=== PATIENT | male | born 1960 | race Caucasian/White ===

== ENCOUNTER → 2017-12-20 09:43 | Outpatient (CLI) | payer BC, SELFPAY ==
[2017-12-20 11:21] LABS: AST(SGOT) 18 U/L (15-37); Alanine Aminotransfer ALT/SGPT 26 U/L (16-61); Albumin, Serum 3.7 g/dL (3.2-5.0); Alkaline Phosphatase 102 U/L (45-117); Anion Gap 7 (5-15); BUN 17 mg/dL (7-18); BUN/Creat Ratio 21.7 RATIO (10-20); Calcium,Total 8.7 mg/dL (8.5-10.1); Chloride 106 mmol/L (98-107); Cholesterol 145 mg/dL (200); Creatinine, Serum 0.78 mg/dL (0.70-1.30); EST Glomerular Filtration Rate 109 mL/min (>60); Est Glom Filt Rate - Afr Amer 132 mL/min (>60); Globulin 3.5 g/dL (2.2-4.2); Glucose 91 mg/dL (74-106); High Density Lipoprotein 67 mg/dL; Potassium 3.9 mmol/L (3.5-5.1); Protein, Total 7.2 g/dL (6.4-8.2); Sodium Level 140 mmol/L (136-145); Thyroid Stim Hormone (TSH) 0.98 uIU/mL (0.358-3.74); Triglycerides 51 mg/dL; Very Low Density Lipoprotein 10 mg/dL (5-40)
== END ==
PROVIDERS: Family Provider Internal Medicine; PCP Internal Medicine; Referring Provider Internal Medicine Cardiovascular Disease; Visit Provider Internal Medicine Cardiovascular Disease
DX: I10 Essential (primary) hypertension (principal); E78.5 Hyperlipidemia, unspecified
CPT/HCPCS: 36415; 80048; 80061; 80076; 84443

== ENCOUNTER → 2018-12-12 09:46 | Outpatient (CLI) | payer BC, SELFPAY ==
[2018-12-12 07:46] VITALS: BMI 27.2
[2018-12-12 11:18] LABS: AST(SGOT) 19 U/L (15-37); Alanine Aminotransfer ALT/SGPT 26 U/L (16-61); Albumin, Serum 3.9 g/dL (3.2-5.0); Alkaline Phosphatase 94 U/L (45-117); Anion Gap 6 (5-15); BUN 18 mg/dL (7-18); BUN/Creat Ratio 22.6 RATIO (10-20); Bilirubin, Direct 0.17 mg/dL (0.00-0.30); Calcium,Total 9.2 mg/dL (8.5-10.1); Chloride 105 mmol/L (98-107); Cholesterol 156 mg/dL (200); EST Glomerular Filtration Rate 107 mL/min (>60); Est Glom Filt Rate - Afr Amer 129 mL/min (>60); Globulin 3.3 g/dL (2.2-4.2); Glucose 94 mg/dL (74-106); High Density Lipoprotein 74 mg/dL; Potassium 3.9 mmol/L (3.5-5.1); Protein, Total 7.2 g/dL (6.4-8.2); Sodium Level 140 mmol/L (136-145); Triglycerides 63 mg/dL; Very Low Density Lipoprotein 13 mg/dL (5-40)
== END ==
PROVIDERS: Family Provider Internal Medicine; PCP Internal Medicine; Referring Provider Internal Medicine Cardiovascular Disease; Visit Provider Internal Medicine Cardiovascular Disease
DX: I10 Essential (primary) hypertension (principal); E78.5 Hyperlipidemia, unspecified; Q21.1 Atrial septal defect; Z86.73 Personal history of transient ischemic attack (TIA), and cerebral infarction without residual deficits
CPT/HCPCS: 36415; 80048; 80061; 80076

== ENCOUNTER → 2019-12-18 09:58 | Outpatient (CLI) | payer BC, SELFPAY ==
[2019-12-18 07:32] VITALS: BMI 26.7
[2019-12-18 10:50] LABS: AST(SGOT) 16 U/L (15-37); Alanine Aminotransfer ALT/SGPT 29 U/L (16-61); Albumin, Serum 3.9 g/dL (3.2-5.0); Alkaline Phosphatase 90 U/L (45-117); Bilirubin, Direct 0.17 mg/dL (0.00-0.30); Cholesterol 163 mg/dL (200); Globulin 3.2 g/dL (2.2-4.2); High Density Lipoprotein 71 mg/dL; Protein, Total 7.1 g/dL (6.4-8.2); Triglycerides 64 mg/dL; Very Low Density Lipoprotein 13 mg/dL (5-40)
== END ==
PROVIDERS: PCP Internal Medicine; Referring Provider Internal Medicine Cardiovascular Disease; Visit Provider Internal Medicine Cardiovascular Disease
DX: E78.5 Hyperlipidemia, unspecified (principal); I10 Essential (primary) hypertension
CPT/HCPCS: 36415; 80061; 80076

== ENCOUNTER → 2020-01-11 12:35 | Outpatient (CLI) | payer BC, SELFPAY ==
[2019-12-18 07:32] VITALS: BMI 26.7
--- NOTE | 2020-01-11 12:36 | ECHOD_ITS ---
Reason For Study: PFO/ASD Procedure This was a 2D Doppler, Color Flow transthoracic echocardiogram. Exam performed in department. Left Ventricle Normal LV size. Sigmoid septum. Left ventricular systolic function is normal. The estimated ejection fraction is 65 %. No regional wall motion abnormalities noted. Right Ventricle Normal RV size. Normal systolic function. Atria Normal left atrium. Normal right atrium. Mitral Valve Bileaflet diffuse mitral valve thickening. Tricuspid Valve Normal tricuspid valve. Aortic Valve Normal aortic valve. Trisinus/trileaflet aortic valve. Pulmonic Valve Normal pulmonic valve. Great Vessels Normal aortic root. The pulmonary artery is normal size. Normal inferior vena cava. Pericardium/Pleural No pericardial effusion. MMode/2D Measurements & Calculations LVIDd: 4.7 cm IVSd: 1.1 cm Ao root diam: 3.3 cm LVIDs: 2.6 cm LVPWd: 0.99 cm RVDd: 3.7 cm FS: 44.5 % LAV(MOD-bp): 31.4 ml LVAd ap4: 32.5 cm2 SV(MOD-sp4): 60.4 ml LAV(MOD-bp) Indexed: 16.6 ml/m2 EDV(MOD-sp4): 101.6 ml LAV(MOD-sp2): 37.5 ml EDV(sp4-el): 104.8 ml LAV(MOD-sp4): 26.7 ml LVAs ap4: 18.4 cm2 ESV(MOD-sp4): 41.1 ml ESV(sp4-el): 40.7 ml EF(MOD-sp4): 59.5 % EF(sp4-el): 61.2 % SV(sp4-el): 64.1 ml LA A4 area: 12.3 cm2 LA dimension(2D): 3.9 cm RA A4 area: 12.5 cm2 Doppler Measurements & Calculations MV E max damien: 52.8 cm/sec Lat Peak E' Damien: 5.5 cm/sec Med Peak E' Damien: 5.6 cm/sec MV A max damien: 68.3 cm/sec E/E' lat: 9.6 E/E' med: 9.5 MV E/A: 0.77 Ao V2 max: 125.5 cm/sec LV V1 max: 103.0 cm/sec PA V2 max: 86.1 cm/sec Ao max P.3 mmHg LV V1 max P.2 mmHg TR max damien: 213.3 cm/sec TR max P.2 mmHg Interpretation Summary Normal LV size. Left ventricular systolic function is normal. The estimated ejection fraction is 65 %. Sigmoid septum. Ordering Physician: Flaquito Garcia Referring Physician: Greta Claudio M.D. Performed By: Concha Stanley RDCS
== END ==
PROVIDERS: PCP Internal Medicine; Referring Provider Internal Medicine Cardiovascular Disease; Visit Provider Internal Medicine Cardiovascular Disease
DX: Q21.1 Atrial septal defect (principal); I10 Essential (primary) hypertension
CPT/HCPCS: 93306

== ENCOUNTER → 2020-12-17 11:13 | Outpatient (CLI) | payer BC, SELFPAY ==
[2020-12-17 12:23] LABS: AST(SGOT) 18 U/L (15-37); Alanine Aminotransfer ALT/SGPT 25 U/L (16-61); Albumin, Serum 3.7 g/dL (3.2-5.0); Alkaline Phosphatase 81 U/L (45-117); Bilirubin, Direct 0.17 mg/dL (0.00-0.30); Cholesterol 143 mg/dL (200); Globulin 3.3 g/dL (2.2-4.2); High Density Lipoprotein 69 mg/dL; Triglycerides 37 mg/dL; Very Low Density Lipoprotein 7 mg/dL (5-40)
== END ==
PROVIDERS: PCP Internal Medicine; Referring Provider Nurse Practitioner Family; Visit Provider Nurse Practitioner Family
DX: E78.5 Hyperlipidemia, unspecified (principal)
CPT/HCPCS: 36415; 80061; 80076

== ENCOUNTER 2021-04-09 05:59 | Outpatient (CLI) | payer BC, SELFPAY ==
--- NOTE | 2021-04-09 18:54 | STRESSREP ---
Stress Test Report Exercise myocardial perfusion stress test. 60-year-old male with a history of chest pain. Stress protocol: Resting EKG demonstrates normal sinus rhythm with a rate of 77 bpm normal intervals are noted resting blood pressure is 138/88 mmHg. The patient exercised according to regular Jimmy protocol for total duration of 6 minutes. Patient completed stage II of the Jimmy protocol the maximum heart rate attained was 139 bpm which was 85% of max impact at heart rate the maximum workload was 7 metabolic equivalents. At rest there were no ST or T wave changes noted suggest ischemia and at peak exercise upsloping ST changes only were noted with did not meet the criteria for ischemia. No clinical angina was noted. Myocardial perfusion protocol. 11.8 mCi of technetium 99m sestamibi was injected at rest. The patient exercised according to regular Jimmy protocol. At peak exercise 31.9 mCi of technetium 99m sestamibi was injected stress images were obtained stress and rest images were reconstructed and compared in the short axis vertical long and horizontal long axis. Gated images were also obtained per Perfusion SPECT analysis: Review of the stress images demonstrate normal uptake of tracer noted in all areas of the myocardium. The resting images similarly demonstrate normal uptake of tracer noted in all areas of the myocardium. No areas of reversibility are noted suggest ischemia. Gated SPECT analysis: The gated ejection fraction is noted to be 70%. Conclusion: Normal exercise myocardial perfusion stress test at a moderate workload. Preserved ejection fraction.
== END 2021-04-09 23:59 | disposition home or self-care (01) ==
PROVIDERS: PCP Internal Medicine; Referring Provider Nurse Practitioner Family; Visit Provider Nurse Practitioner Family
DX: R07.9 Chest pain, unspecified (principal); I10 Essential (primary) hypertension; E78.5 Hyperlipidemia, unspecified; Q21.1 Atrial septal defect; Z86.73 Personal history of transient ischemic attack (TIA), and cerebral infarction without residual deficits
CPT/HCPCS: 78452; 93017; A9500; A4216

== ENCOUNTER 2021-12-08 12:01 | Emergency (ER) | payer BC, SELFPAY ==
[2021-12-08 12:03] VITALS: BP 136/98; PULSE 80; RESP 18; TEMP 36.5; O2SAT 98; BMI 25.8
--- NOTE | 2021-12-08 12:17 | CT_ITS ---
STUDY: CTA HEAD AND NECK WITH CONTRAST REASON FOR EXAM: Male, 61 years old. Dizziness. History of hypertension. RADIATION DOSAGE (If Supplied By Facility): CTDIvol = ( 27.99 ) mGy, DLP = ( 1551.04 ) mGycm TECHNIQUE: CT angiography was performed with a multi-detector CT scanner. Data acquisition was obtained from the skull base through the vertex following intravenous administration of IV 100mL Isovue-370. MIP images were reconstructed from the axial data set. Post-processing of the angiographic images was performed, with multiplanar reformation and 3D reconstruction. Individualized dose optimization techniques were used for this CT. COMPARISON: No relevant priors. FINDINGS: Normal bilateral petrous carotid arteries. There is calcified plaque formation of the right cavernous carotid artery, without a cross-sectional luminal stenosis. There is calcified plaque formation of the left cavernous carotid artery, without a cross-sectional luminal stenosis. Normal right A1 segments of the anterior cerebral artery. Normal left A1 segments of the anterior cerebral artery. Normal intact anterior communicating artery (ACOM). Normal bilateral A2 segments of the anterior cerebral arteries. Normal right M1 and M2 segments of the middle cerebral arteries, with a normal M1 bifurcation. Normal left M1 and M2 segments of the middle cerebral arteries, with a normal M1 bifurcation. Normal right posterior communicating artery (PCOM). Normal left posterior communicating artery (PCOM). Normal bilateral vertebral arteries. Normal basilar artery with a normal basilar bifurcation. The visualized bilateral superior cerebellar (SCA) arteries are normal. Normal bilateral P1, P2 and visualized P3 segments of the posterior cerebral arteries. There is no demonstrated aneurysm of the [place] of [place]. Atherosclerotic calcific plaques of the vertebral arteries and cavernous portions of the internal carotid arteries bilaterally. There is evidence of encephalomalacia in the posterior left occipital lobe. This is unchanged from prior examination dated 11/14/2014. AORTIC ARCH: Normal visualized aortic arch. Normal origins of the brachiocephalic, left common carotid, and left subclavian arteries. RIGHT CAROTID ARTERIES: Normal right common carotid artery (CCA). Normal right common carotid bulb. Normal origin of the right internal carotid (ICA) artery without a hemodynamically significant stenosis. Normal visualized cervical portion of the right internal carotid artery. Normal origin of the right external carotid artery (ECA). LEFT CAROTID ARTERIES: Normal left common carotid artery (CCA). Normal left common carotid bulb. Normal origin of the left internal carotid (ICA) artery without a hemodynamically significant stenosis. Normal visualized cervical portion of the left internal carotid artery. Normal origin of the left external carotid artery (ECA). VERTEBRAL ARTERIES: There is enhancement within the bilateral vertebral arteries with a small right vertebral artery, and a dominant left vertebral artery. Calcific plaque formation in the distal portion of the left vertebral artery. CT/CTA Head AND Neck W/ Contrast IMPRESSION: Normal CTA Head and neck with contrast. Electronically Signed: Jonnathan San MD at 13:50 EDT ,
--- NOTE | 2021-12-08 12:19 | EDS_ITS ---
HPI History of Present Illness Chief Complaint: Dizziness Informant: patient Onset/Context/Timing Onset: Today Narrative Narrative: Patient present secondary to dizziness. He was at work this morning when he states he felt lightheaded whenever he would bend over to get something. He called his primary care physician who recommended he go to the now urgent care center. The provider there apparently was concerned about possible stroke as patient has a history of stroke and sent him to the emergency room to get a CAT scan. Patient denies chest pain or palpitations. He did not feel as if he was going to pass out. When patient was asked about his prior stroke symptoms he states he just had watering from the right eye. Reportedly a lesion the size of a quarter was found on his MRI. [facility] Medical History (Updated 12/08/21 @ 14:[address] Britney Aviles MD) Essential (primary) hypertension History of CVA (cerebrovascular accident) (2012) HLD (hyperlipidemia) Patent foramen ovale Home Medications aspirin 325 mg tablet 325 mg PO DAILY@0800 11/16/14 [History Last Taken 03/18/16] atorvastatin 10 mg tablet 10 mg PO QHS #90 tabs 06/22/21 [Rx Last Taken Unknown] lisinopril 20 mg tablet 20 mg PO DAILY #90 tabs 06/22/21 [Rx Last Taken Unknown] Allergy/AdvReac Type Severity Reaction Status Date / Time No Known Allergies Allergy Verified 12/08/21 12:04 Family History Father CAD (coronary artery disease) Myocardial infarction Social History Smoking Status: Never smoker Smokeless tobacco user: chewing tobacco alcohol intake: never substance use type: does not use caffeine: Yes (mountain dew ) Type: carbonated beverages Number of servings: 6 ROS ROS ED Constitutional Constitutional ED: Denies chills or fever(s) Eyes Eyes: Denies change in vision or discharge from eye(s) ENT ENT ED: Denies discharge from eye(s), rhinorrhea or sore throat Cardiovascular Cardiovascular: Denies chest pain or palpitations Respiratory/Chest Respiratory/Chest: Denies cough or dyspnea Gastrointestinal Gastrointestinal: Denies abdominal pain, nausea or vomiting Genitourinary Genitourinary ED: Denies difficulty urinating or dysuria Musculoskeletal Musculoskeletal: Denies back pain or extremity pain Integumentary Denies Abrasions or rash Neurologic Neurologic: Denies headache(s) or weakness Psychiatric Psychiatric: Denies anxiety or depression Allergic/Immunologic Allergic/Immunologic ED: Denies lip swelling or urticaria EXAM Physical Exam Const Vital Signs: 12/08/21 12:03 12/08/21 12:44 Temperature 97.7 F L Temperature Source Temporal Pulse Rate 80 Respiratory Rate 18 Respiratory Effort Normal Non-Labored Respiratory Pattern Normal Blood Pressure 136/98 H Blood Pressure Mean 110 Pulse Ox 98 Oxygen Delivery Method Room Air Positive well nourished and well developed General Appearance ED: well developed HEENT Reports normocephalic and head/scalp atraumatic Eyes PERRL and EOMs intact bilaterally Neck supple Chest Wall inspection of chest normal and palpation of chest normal Resp normal respiratory effort and clear to auscultation bilaterally Cardio regular rate and regular rhythm GI normal to inspection, nondistended, normoactive bowel sounds Palpation: soft Extremity normal to inspection Neuro oriented x3 and no sensory deficits noted Sensorium / Orientation: alert Motor Exam: strength 5/5 throughout Psych mental status grossly normal Skin no rashes or lesions noted MDM MDM MDM Narrative Medical decision making narrative: Patient was given a liter IV fluids. Lab work obtained along with CTA of the head and neck. EKG ordered. Lab Data Attestation: I reviewed the patient's lab results. Labs: Laboratory Results - last 24 hr 12/08/21 12/08/21 12:36 12:36 WBC 7.6 RBC 4.68 Hgb 15.1 Hct 41.8 MCV 89.3 MCH 32.3 H MCHC 36.1 H RDW Std Deviation 38.0 RDW Coeff of [place] 11.7 Plt Count 220 MPV 9.6 Immature Gran % (Auto) 0.400 Neut % (Auto) 79.6 H Lymph % (Auto) 13.[address] [place] % (Auto) 5.5 Eos % (Auto) 0.9 Baso % (Auto) 0.4 Absolute Neuts (auto) 6.1 Absolute Lymphs (auto) 1.01 Nucleated RBC % 0 Sodium 140 Potassium 3.9 Chloride 106 Carbon Dioxide 29.0 Anion Gap 5 BUN 22 H Creatinine 0.71 Estim Creat Clear Calc 104.74 Est GFR (MDRD) Af Amer 146 Est GFR (MDRD) Non-Af 121 BUN/Creatinine Ratio 31.1 H Glucose 113 H Calcium 9.2 EKG Initial EKG: Attestation: I personally reviewed and interpreted this EKG as follows: Interpretation: Sinus Rhythm (Sinus at 78 with no acute ischemia.) Treatment and Re-Evaluation Narrative: As advised by nursing staff that patient ambulated to the restroom and back without difficulty. EKG is unremarkable. Lab work is normal and CTA of the head and neck reveal no acute abnormalities. Test results are discussed with the patient. He will continue to push fluids. He is given a work note for today. He can return tomorrow. He states at this time he feels fine but he did not feel well this morning. Discharge Plan Triage Chief Complaint: Dizziness ED Provider: Britney Aviles Dx/Rx/DC Orders Clinical Impression: Dizziness Instructions: ED Dizziness, Uncertain Cause Prescriptions: No Action aspirin 325 MG tablet 325 mg PO DAILY@0800 lisinopril 20 mg tablet 20 mg PO DAILY Qty: 90 3RF atorvastatin 10 mg tablet 10 mg PO QHS Qty: 90 3RF Stand Alone Forms: ED Work / School Excuse Primary Care Provider: Greta Claudio Referrals: Greta Claudio DO [Primary Care Provider] - 1 Week if not improving Disposition Disposition: Home, Self Care
[2021-12-08] MEDS: 0.9% Normal Saline 1,000 ML 1000 ML IV (12:36)
[2021-12-08 12:47] LABS: Absolute Lymphocyte Count 1.01 X10^3/uL (0.83-4.51); Absolute Neutrophil Count 6.1 X10^3/uL (2.0-7.7); Basophil# 0.03 X10^3/uL; Basophil% 0.4 % (0-1); Eosinophil# 0.07 X10^3/uL; Eosinophils% 0.9 % (0-5); Hematocrit 41.8 % (40-54); Hemoglobin 15.1 g/dL (13.0-16.5); Lymphocyte # 1.01 X10^3/ul (0.83-4.51); Lymphocyte % 13.2 % (19-41); Mean Corp Hgb Conc 36.1 g/dL (32-36); Mean Corpuscular Hgb 32.3 pg (27.0-32.0); Mean Corpuscular Volume 89.3 fL (80-94); Mean Platelet Vol. 9.6 fl (6.2-12.0); Monocyte# 0.42 X10^3/uL; Monocyte% 5.5 % (0-10); NRBC Flagged by Analyzer 0 % (0-5); Neutrophil # 6.08 X10^3/uL (2.7-7.7); Neutrophil % 79.6 % (47-70); Platelet Count 220 K/mm3 (150-450); RBC Distribution Width CV 11.7 % (11.6-14.6); Red Blood Count 4.68 M/mm3 (4.6-6.2); White Blood Count 7.6 K/mm3 (4.4-11.0)
--- NOTE | 2021-12-08 12:49 | NURSING ---
NO OLD EKGS
[2021-12-08 12:59] LABS: Anion Gap 5 (5-15); BUN 22 mg/dL (7-18); BUN/Creat Ratio 31.1 RATIO (10-20); Calcium,Total 9.2 mg/dL (8.5-10.1); Chloride 106 mmol/L (98-107); Creatinine, Serum 0.71 mg/dL (0.70-1.30); EST Glomerular Filtration Rate 121 mL/min (>60); Est Glom Filt Rate - Afr Amer 146 mL/min (>60); Estimated Creatinine Clearance 104.74 ml/min; Glucose 113 mg/dL (74-106); Potassium 3.9 mmol/L (3.5-5.1); Sodium Level 140 mmol/L (136-145)
[2021-12-08 14:04] VITALS: BP 142/87; PULSE 70; RESP 16; O2SAT 99
== END 2021-12-08 14:11 | disposition home or self-care (01) ==
PROVIDERS: Emergency Provider Emergency Medicine; PCP Internal Medicine; Visit Provider Emergency Medicine
DX: R42 Dizziness and giddiness (principal); I10 Essential (primary) hypertension; E78.5 Hyperlipidemia, unspecified; F17.220 Nicotine dependence, chewing tobacco, uncomplicated; Z79.82 Long term (current) use of aspirin; Z79.899 Other long term (current) drug therapy; Z86.73 Personal history of transient ischemic attack (TIA), and cerebral infarction without residual deficits; Z82.49 Family history of ischemic heart disease and other diseases of the circulatory system
CPT/HCPCS: 70496; 70498; 80048; 85025; 93005; 96360; 96361; 99284; J7030; Q9967; A4216

== ENCOUNTER → 2021-12-19 | Outpatient (CLI) | payer BC, SELFPAY ==
[2021-12-19 07:42] LABS: Absolute Lymphocyte Count 1.86 X10^3/uL (0.83-4.51); Absolute Neutrophil Count 3.2 X10^3/uL (2.0-7.7); Basophil# 0.04 X10^3/uL; Basophil% 0.6 % (0-1); Eosinophil# 0.51 X10^3/uL; Eosinophils% 8.1 % (0-5); Hematocrit 42.7 % (40-54); Hemoglobin 14.9 g/dL (13.0-16.5); Lymphocyte # 1.86 X10^3/ul (0.83-4.51); Lymphocyte % 29.5 % (19-41); Mean Corp Hgb Conc 34.9 g/dL (32-36); Mean Corpuscular Hgb 31.8 pg (27.0-32.0); Mean Corpuscular Volume 91.2 fL (80-94); Mean Platelet Vol. 9.3 fl (6.2-12.0); Monocyte# 0.61 X10^3/uL; Monocyte% 9.7 % (0-10); NRBC Flagged by Analyzer 0 % (0-5); Neutrophil # 3.24 X10^3/uL (2.7-7.7); Neutrophil % 51.5 % (47-70); Platelet Count 225 K/mm3 (150-450); RBC Distribution Width CV 11.8 % (11.6-14.6); RBC Distribution Width SD 39.2 fl (35.1-43.9); Red Blood Count 4.68 M/mm3 (4.6-6.2); White Blood Count 6.3 K/mm3 (4.4-11.0)
[2021-12-19 08:31] LABS: ALB/GLOB Ratio 1.2 RATIO (0.9-2.4); AST(SGOT) 27 U/L (15-37); Alanine Aminotransfer ALT/SGPT 31 U/L (16-61); Albumin, Serum 3.6 g/dL (3.2-5.0); Alkaline Phosphatase 82 U/L (45-117); Anion Gap 6 (5-15); BUN 29 mg/dL (7-18); BUN/Creat Ratio 37.5 RATIO (10-20); Calcium,Total 8.7 mg/dL (8.5-10.1); Chloride 107 mmol/L (98-107); Cholesterol 146 mg/dL (200); Creatinine, Serum 0.77 mg/dL (0.70-1.30); EST Glomerular Filtration Rate 109 mL/min (>60); Est Glom Filt Rate - Afr Amer 132 mL/min (>60); Globulin 2.9 g/dL (2.2-4.2); Glucose 108 mg/dL (74-106); High Density Lipoprotein 75 mg/dL; PSA,Total - Annual Screen 2.62 ng/mL (0.00-4.00); Potassium 4.2 mmol/L (3.5-5.1); Protein, Total 6.5 g/dL (6.4-8.2); Sodium Level 140 mmol/L (136-145); Thyroid Stim Hormone (TSH) 0.86 uIU/mL (0.358-3.74); Triglycerides 55 mg/dL; Very Low Density Lipoprotein 11 mg/dL (5-40)
== END | disposition home or self-care (01) ==
PROVIDERS: PCP Internal Medicine; Visit Provider Internal Medicine
DX: E78.5 Hyperlipidemia, unspecified (principal); Z12.5 Encounter for screening for malignant neoplasm of prostate
CPT/HCPCS: 36415; 80053; 80061; 84153; 84443; 85025; G0103

== ENCOUNTER → 2023-01-22 | Outpatient (CLI) | payer BC, SELFPAY ==
[2023-01-22 07:45] LABS: Absolute Lymphocyte Count 1.56 X10^3/uL (0.83-4.51); Absolute Neutrophil Count 3.3 X10^3/uL (2.0-7.7); Basophil# 0.03 X10^3/uL; Basophil% 0.5 % (0-1); Eosinophil# 0.44 X10^3/uL; Eosinophils% 7.4 % (0-5); Hematocrit 43.5 % (40-54); Hemoglobin 14.9 g/dL (13.0-16.5); Lymphocyte # 1.56 X10^3/ul (0.83-4.51); Lymphocyte % 26.1 % (19-41); Mean Corp Hgb Conc 34.3 g/dL (32-36); Mean Corpuscular Hgb 31.9 pg (27.0-32.0); Mean Corpuscular Volume 93.1 fL (80-94); Monocyte# 0.62 X10^3/uL; Monocyte% 10.4 % (0-10); NRBC Flagged by Analyzer 0 % (0-5); Neutrophil # 3.28 X10^3/uL (2.7-7.7); Neutrophil % 54.9 % (47-70); Platelet Count 245 K/mm3 (150-450); RBC Distribution Width CV 11.9 % (11.6-14.6); RBC Distribution Width SD 40.4 fl (35.1-43.9); Red Blood Count 4.67 M/mm3 (4.6-6.2)
[2023-01-22 08:38] LABS: ALB/GLOB Ratio 1.2 RATIO (0.9-2.4); AST(SGOT) 21 U/L (15-37); Alanine Aminotransfer ALT/SGPT 35 U/L (16-61); Albumin, Serum 3.7 g/dL (3.2-5.0); Alkaline Phosphatase 87 U/L (45-117); Anion Gap 3 (5-15); BUN 28 mg/dL (7-18); BUN/Creat Ratio 34.4 RATIO (10-20); Calcium,Total 9.1 mg/dL (8.5-10.1); Chloride 109 mmol/L (98-107); Cholesterol 163 mg/dL (200); Creatinine, Serum 0.82 mg/dL (0.70-1.30); EST Glomerular Filtration Rate 102 mL/min (>60); Est Glom Filt Rate - Afr Amer 124 mL/min (>60); Globulin 3.1 g/dL (2.2-4.2); Glucose 115 mg/dL (74-106); High Density Lipoprotein 79 mg/dL; Potassium 4.2 mmol/L (3.5-5.1); Protein, Total 6.8 g/dL (6.4-8.2); Sodium Level 140 mmol/L (136-145); Thyroid Stim Hormone (TSH) 0.73 uIU/mL (0.358-3.74); Triglycerides 58 mg/dL; Very Low Density Lipoprotein 12 mg/dL (5-40)
[2023-01-24 09:45] LABS: Hepatitis C Antibody Non-Reactive (Nonreactive)
[2023-01-25 04:07] LABS: PSA, Total 2.3 ng/mL (0.0-4.0)
== END | disposition home or self-care (01) ==
LOC: LAB 07:16
PROVIDERS: PCP Internal Medicine; Referring Provider Internal Medicine; Visit Provider Internal Medicine
DX: E78.5 Hyperlipidemia, unspecified (principal); Z12.5 Encounter for screening for malignant neoplasm of prostate; Z11.59 Encounter for screening for other viral diseases
CPT/HCPCS: 36415; 80053; 80061; 84153; 84443; 85025; 86803

== ENCOUNTER → 2023-04-16 | Outpatient (CLI) | payer BC, SELFPAY ==
--- OUTSIDE RECORDS SUMMARY | 2023-04-16 07:39 | XMS RPT_ITS | CCD ---
Author Name Unknown Address [address] [place] [address] Organization [facility] Care Team Providers Care Special Needs Librarian Name Role Phone Michelle Stock Unavailable Unavailable Michelle Stock Unavailable Unavailable Elham De Leon Unavailable Unavailable KHURRAM Loyola, Phuong Esquivel Unavailable [phone] Greta Claudio DO Attending Unavailable Blanco Thompson Referring Unavailable Greta lCaudio DO Consulting Unavailable Greta Claudio DO Unavailable Blanco Thompson Unavailable Dr. Zac Cosme Unavailable B erika Granados Unavailable Juvenal ROGERS, Princess Unavailable Unavailable Candie Goldberg LPN Unavailable Unavailable Jerrell MONROE, Kian Unavailable Unavailable Medications Completed/Discontinued Medications Medication Drug Class(es) Dates Sig (Normalized) Sig (Original) acetaminophen 500 mg oral tablet (1 source) Start: 02-13-2014 End: 10-14-2017 Tylenol Extra Strength 500 MG Oral Tablet 1 (one) Tablet Tablet q6-8 hrs prn for 0 days Quantity: 30 {Tablet} Refills: 0 Ordered: 14-Oct-2017 Tg Mckeon Start : 13-Feb-2014 End : 14-Oct-2017 Discontinued aspirin 325 mg oral tablet (5 sources) Platelet Aggregation Inhibitor, Nonsteroidal Anti-inflammatory Drug Start: 10-18-2012 take 1 tablet by mouth once daily ASPIRIN 325 MG TABS One tablet by mouth daily ASPIRIN [id number] Flaquito Garcia MD Problems Active Problems Problem Classification Problem Date Documented Date Episodic/Chronic Abdominal pain (2 sources) Left lower quadrant pain; Translations: [Continuous LLQ abdominal pain] Resolved: 05-23-2019 01-07-2021 Episodic Acute cerebrovascular disease (9 sources) Cerebrovascular accident; Translations: [Cerebral artery occlusion, unspecified with cerebral infarction] Onset: 10-18-2012 10-18-2012 Chronic Anal and rectal conditions (2 sources) Rectal mass; Translations: [Rectal lump] Resolved: 12-16-2021 12-16-2021 Episodic Past or Other Problems Problem Classification Problem Date Documented Da te Episodic/Chronic Other nutritional; endocrine; and metabolic disorders (4 sources) Body mass index (BMI) 28.0-28.9, adult; Translations: [Body mass index (BMI) 28.0-28.9, adult] Onset: 11-29-2016 11-29-2016 Episodic Unclassified (2 sources) Unspecified Diagnosis 05-23-2019 Results Test Name Value Interpretation Reference Range Facil ity Vital Signs Date Time Vital Sign Value Performing Clinician Facility 12-16-2021 11:51-0500 Body height 167.64 cm [facility]; [facility] Work Phone: 12-16-2021 11:51-0500 Body mass index (BMI) [Ratio] 27.18 kg/m2 [facility]; [facility] Work Phone: 12-16-2021 11:51-0500 Body surface area Derived from formula 1.86 m2 [facility]; [facility] Work Phone: 12-16-2021 11:51-0500 Body temperature 97.1 [degF] [facility]; [facility] Work Phone: 12-16-2021 11:51-0500 Body weight 76.37 kg [facility]; [facility] Work Phone: 12-16-2021 11:51-0500 Diastolic blood pressure 80 mm[Hg] [facility]; [facility] Work Phone: Encounters Encounter Date Encounter Type Care Provider Facility Start: 12-16-2021 End: 12-16-2021 Office outpatient visit 15 minutes Greta Shanon DO Work Phone: [facility] Start: 12-08-2021 ambulatory Greta Shanon DO [facility] Start: 05-11-2021 End: 05-11-2021 Office outpatient visit 15 minutes Greta Shanon DO Work Phone: [facility] Start: 01-07-2021 End: 01-07-2021 Office outpatient visit 15 minutes Greta Shanon DO Work Phone: [facility] Start: 12-01-2020 End: 12-01-2020 Office outpatient visit 15 minutes Greta Shanon DO Work Phone: [facility] Start: 05-23-2019 End: 05-23-2019 Office outpatient visit 15 minutes Greta Shanon DO Work Phone: [facility] Start: 05-22-2019 End: 05-22-2019 Office outpatient visit 10 minutes Greta Shanon DO Work Phone: [facility] Start: 10-14-2017 End: 10-14-2017 Office outpatient visit 15 minutes Greta Shanon DO Work Phone: [facility] Start: 12-26-2014 End: 12-26-2014 Office outpatient visit 15 minutes Greta Shanon DO Work Phone: [facility] Start: 02-14-2014 End: 02-14-2014 Office outpatient visit 10 minutes Greta Shanon DO Work Phone: [facility] Start: 02-13-2014 End: 02-13-2014 Office outpatient visit 15 minutes Greta Shanon DO Work Phone: [facility] Start: 02-12-2014 End: 02-12-2014 Office outpatient visit 25 minutes Greta Shanon DO Work Phone: [facility] Start: 12-25-2013 End: 12-25-2013 Office outpatient visit 15 minutes Greta Shanon DO Work Phone: [facility] Start: 06-20-2013 End: 06-20-2013 Patient encounter procedure Greta Shanon DO Work Phone: [facility] Start: 12-20-2012 End: 12-20-2012 Patient encounter procedure Greta Claudio DO Work Phone: [facility] Start: 09-27-2012 End: 09-27-2012 Patient encounter procedure Greta Claudio DO Work Phone: [facility] Start: 09-18-2012 End: 09-18-2012 Phone Encounter Greta Claudio DO Work Phone: [facility] Start: 09-13-2012 End: 09-13-2012 Phone Encounter Greta Claudio DO Work Phone: [facility] Start: 09-12-2012 End: 09-12-2012 Office outpatient new 45 minutes Greta Claudio DO Work Phone: [facility] Procedures Date Procedure Procedure Detail Performing Clinician Start: 12-08-2021 End: 12-08-2021 Emergency Department Summary Procedure Note: See Note; NOTES: [facility] Medical Records Department [address] [place] [id number] Emergency Department Summary 12/08/21 MR#: [id number] Acct: [id number] Name: BHANU KEENE Rep #: [id number] : 1960 61 From: Britney Aviles MD PCP: Dr. Greta Claudio, DO Status:DEP ER Location: ED HPI History of Present Illness Chief Complaint: Dizziness Informant: patient Onset/Context/Timing Onset: Today Narrative Narrative: Patient present secondary to dizziness. He was at work this morning when he states he felt lightheaded whenever he would bend over to get something. He called his primary care physician who recommended he go to the now urgent care center. The provider there apparently was concerned about possible stroke as patient has a history of stroke and sent him to the emergency room to get a CAT scan. Patient denies chest pain or palpitations. He did not feel as if he was going to pass out. When patient was asked about his prior stroke symptoms he states he just had watering from the right eye. Reportedly a lesion the size of a quarter was found on his MRI. [facility] Medical History (Updated 12/08/21 @ 14:[address] Britney Aviles MD) Essential (primary) hypertension History of CVA (cerebrovascular accident) (2013) HLD (hyperlipidemia) Patent foramen ovale Home Medications aspirin 325 mg tablet 325 mg PO DAILY@0800 11/16/14 [History Last Taken 03/18/16] atorvastatin 10 mg tablet 10 mg PO QHS #90 tabs 06/22/21 [Rx Last Taken Unknown] lisinopril 20 mg tablet 20 mg PO DAILY #90 tabs 06/22/21 [Rx Last Taken Unknown] Allergy/AdvReac Type Severity Reaction Status Date / Time No Known Allergies Allergy Verified 12/08/21 12:04 Family History Father CAD (coronary artery disease) Myocardial infarction Social History Smoking Status: Never smoker Smokeless tobacco user: chewing tobacco alcohol intake: never substance use type: does not use caffeine: Yes (mountain dew ) Type: carbonated beverages Number of servings: 6 ROS ROS ED Constitutional Constitutional ED: Denies chills or fever(s) Eyes Eyes: Denies change in vision or discharge from eye(s) ENT ENT ED: Denies discharge from eye(s), rhinorrhea or sore throat Cardiovascular Cardiovascular: Denies chest pain or palpitations Respiratory/Chest Respiratory/Chest: Denies cough or dyspnea Gastrointestinal Gastrointestinal: Denies abdominal pain, nausea or vomiting Genitourinary Genitourinary ED: Denies difficulty urinating or dysuria Musculoskeletal Musculoskeletal: Denies back pain or extremity pain Integumentary Denies Abrasions or rash Neurologic Neurologic: Denies headache(s) or weakness Psychiatric Psychiatric: Denies anxiety or depression Allergic/Immunologic Allergic/Immunologic ED: Denies lip swelling or urticaria EXAM Physical Exam Const Vital Signs: 12/08/21 12:03 12/08/21 12:44 Temperature 97.7 F L Temperature Source Temporal Pulse Rate 80 Respiratory Rate 18 Respiratory Effort Normal Non-Labored Respiratory Pattern Normal Blood Pressure 136/98 H Blood Pressure Mean 110 Pulse Ox 98 Oxygen Delivery Method Room Air Positive well nourished and well developed General Appearance ED: well developed HEENT Reports normocephalic and head/scalp atraumatic Eyes PERRL and EOMs intact bilaterally Neck supple Chest Wall inspection of chest normal and palpation of chest normal Resp normal respiratory effort and clear to auscultation bilaterally Cardio regular rate and regular rhythm GI normal to inspection, nondistended, normoactive bowel sounds Palpation: soft Extremity normal to inspection Neuro oriented x3 and no sensory deficits noted Sensorium / Orientation: alert Motor Exam: strength 5/5 throughout Psych mental status grossly normal Skin no rashes or lesions noted MDM MDM MDM Narrative Medical decision making narrative: Patient was given a liter IV fluids. Lab work obtained along with CTA of the head and neck. EKG ordered. Lab Data Attestation: I reviewed the patient's lab results. Labs: Laboratory Results - last 24 hr 12/08/21 12/08/21 12:36 12:36 WBC 7.6 RBC 4.68 Hgb 15.1 Hct 41.8 MCV 89.3 MCH 32.3 H MCHC 36.1 H RDW Std Deviation 38.0 RDW Coeff of Dee Dee 11.7 Plt Count 220 MPV 9.6 Immature Gran % (Auto) 0.400 Neut % (Auto) 79.6 H Lymph % (Auto) 13.2 L [place] % (Auto) 5.5 Eos % (Auto) 0.9 Baso % (Auto) 0.4 Absolute Neuts (auto) 6.1 Absolute Lymphs (auto) 1.01 Nucleated RBC % 0 Sodium 140 Potassium 3.9 Chloride 106 Carbon Dioxide 29.0 Anion Gap 5 BUN 22 H Creatinine 0.71 Estim Creat Clear Calc 104.74 Est GFR (MDRD) Af Amer 146 Est GFR (MDRD) Non-Af 121 BUN/Creatinine Ratio 31.1 H Glucose 113 H Calcium 9.2 EKG Initial EKG: Attestation: I personally reviewed and interpreted this EKG as follows: Interpretation: Sinus Rhythm (Sinus at 78 with no acute ischemia.) Treatment and Re-Evaluation Narrative: As advised by nursing staff that patient ambulated to the restroom and back without difficulty. EKG is unremarkable. Lab work is normal and CTA of the head and neck reveal no acute abnormalities. Test results are discussed with the patient. He will continue to push fluids. He is given a work note for today. He can return tomorrow. He states at this time he feels fine but he did not feel well this morning. Discharge Plan Triage Chief Complaint: Dizziness ED Provider: Britney Aviles Dx/Rx/DC Orders Clinical Impression: Dizziness Instructions: ED Dizziness, Uncertain Cause Prescriptions: No Action aspirin 325 MG tablet 325 mg PO DAILY@0800 lisinopril 20 mg tablet 20 mg PO DAILY Qty: 90 3RF atorvastatin 10 mg tablet 10 mg PO QHS Qty: 90 3RF Stand Alone Forms: ED Work / School Excuse Primary Care Provider: Greta Claudio Referrals: Greta Claudio, [Primary Care Provider] - 1 Week if not improving Disposition Disposition: Home, Self Care What to do if you have Problems For any increased pain, shortness of breath, bleeding, nausea or vomiting, chest pain, or any unexpected problems, contact your Primary Care Provider. Call [facility] ([phone]) or report to the closest Emergency Room. Call 911 if necessary. 12/08/21 0468 <Electronically signed by Britney Aviles MD> Cosigner Signature (if applicable): CC: Dr. Greta Claudio DO Signed Greta Claudio DO Work Phone: Start: 12-08-2021 End: 12-08-2021 CTA Head AND Neck W/ Contrast Procedure Note: See Note; NOTES: [facility] Imaging Services [address] [place] [id number] CTA Head AND Neck W/ Contrast MR#: [id number] Acct: [id number] Name: BHANU KEENE Rep #: [id number] : 1960 M 61 From: Jonnathan silva MD PCP: Dr. Greta Claudio DO Status: DEP ER Study: CTA Head AND Neck W/ Contrast Date of Exam: Exam# [id number] Ordering Dr: Britney Aviles MD STUDY: CTA HEAD AND NECK WITH CONTRAST REASON FOR EXAM: Male, 61 years old. Dizziness. History of hypertension. RADIATION DOSAGE (If Supplied By Facility): CTDIvol = ( 27.99 ) mGy, DLP = ( 1551.04 ) mGycm TECHNIQUE: CT angiography was performed with a multi-detector CT scanner. Data acquisition was obtained from the skull base through the vertex following intravenous administration of IV 100mL Isovue-370. MIP images were reconstructed from the axial data set. Post-processing of the angiographic images was performed, with multiplanar reformation and 3D reconstruction. Individualized dose optimization techniques were used for this CT. COMPARISON: No relevant priors. FINDINGS: Normal bilateral petrous carotid arteries. There is calcified plaque formation of the right cavernous carotid artery, without a cross-sectional luminal stenosis. There is calcified plaque formation of the left cavernous carotid artery, without a cross-sectional luminal stenosis. Normal right A1 segments of the anterior cerebral artery. Normal left A1 segments of the anterior cerebral artery. Normal intact anterior communicating artery (ACOM). Normal bilateral A2 segments of the anterior cerebral arteries. Normal right M1 and M2 segments of the middle cerebral arteries, with a normal M1 bifurcation. Normal left M1 and M2 segments of the middle cerebral arteries, with a normal M1 bifurcation. Normal right posterior communicating artery (PCOM). Normal left posterior communicating artery (PCOM). Normal bilateral vertebral arteries. Normal basilar artery with a normal basilar bifurcation. The visualized bilateral superior cerebellar (SCA) arteries are normal. Normal bilateral P1, P2 and visualized P3 segments of the posterior cerebral arteries. There is no demonstrated aneurysm of the poarch of Mcdaniel. Atherosclerotic calcific plaques of the vertebral arteries and cavernous portions of the internal carotid arteries bilaterally. There is evidence of encephalomalacia in the posterior left occipital lobe. This is unchanged from prior examination dated 11/14/2014. AORTIC ARCH: Normal visualized aortic arch. Normal origins of the brachiocephalic, left common carotid, and left subclavian arteries. RIGHT CAROTID ARTERIES: Normal right common carotid artery (CCA). Normal right common carotid bulb. Normal origin of the right internal carotid (ICA) artery without a hemodynamically significant stenosis. Normal visualized cervical portion of the right internal carotid artery. Normal origin of the right external carotid artery (ECA). LEFT CAROTID ARTERIES: Normal left common carotid artery (CCA). Normal left common carotid bulb. Normal origin of the left internal carotid (ICA) artery without a hemodynamically significant stenosis. Normal visualized cervical portion of the left internal carotid artery. Normal origin of the left external carotid artery (ECA). VERTEBRAL ARTERIES: There is enhancement within the bilateral vertebral arteries with a small right vertebral artery, and a dominant left vertebral artery. Calcific plaque formation in the distal portion of the left vertebral artery. CT/CTA Head AND Neck W/ Contrast IMPRESSION: Normal CTA Head and neck with contrast. Electronically Signed: Jonnathan San MD at 13:50 EDT Reading Location ID and State: [facility] / [place] , Service support , CC: Dr. Britney Aviles MD; Dr. Greta Claudio DO Router Machine Operator: Signed Greta Claudio DO Work Phone: Start: 04-09-2021 End: 04-09-2021 Stress Report Procedure Note: See Note; NOTES: [facility] Cardiovascular Services [address] [place] [address] MR#: [id number] Acct: [id number] Name: BHANU KEENE Rep #: [id number] : 1960 60 From: Flaquito Garcia MD Primary Care: Dr. Greta Claudio DO Status: REG CLI Referring Dr: Chong Barahona NP ESCROW CLOSER-C Sex: M C Stress Test Report Exercise myocardial perfusion stress test. 60-year-old male with a history of chest pain. Stress protocol: Resting EKG demonstrates normal sinus rhythm with a rate of 77 bpm normal intervals are noted resting blood pressure is 138/88 mmHg. The patient exercised according to regular Jimmy protocol for total duration of 6 minutes. Patient completed stage II of the Jimmy protocol the maximum heart rate attained was 139 bpm which was 85% of max impact at heart rate the maximum workload was 7 metabolic equivalents. At rest there were no ST or T wave changes noted suggest ischemia and at peak exercise upsloping ST changes only were noted with did not meet the criteria for ischemia. No clinical angina was noted. Myocardial perfusion protocol. 11.8 mCi of technetium 99m sestamibi was injected at rest. The patient exercised according to regular Jimmy protocol. At peak exercise 31.9 mCi of technetium 99m sestamibi was injected stress images were obtained stress and rest images were reconstructed and compared in the short axis vertical long and horizontal long axis. Gated images were also obtained per Perfusion SPECT analysis: Review of the stress images demonstrate normal uptake of tracer noted in all areas of the myocardium. The resting images similarly demonstrate normal uptake of tracer noted in all areas of the myocardium. No areas of reversibility are noted suggest ischemia. Gated SPECT analysis: The gated ejection fraction is noted to be 70%. Conclusion: Normal exercise myocardial perfusion stress test at a moderate workload. Preserved ejection fraction. 04/09/211855 <Electronically signed by Flaquito Garcia MD> Date Flaquito Garcia MD CC: NADINE Barahona; Dr. Greta Claudio, Date Dictated: 04/09/211853 Date Transcribed: 04/09/211853 Router Machine Operator: [place] Signed Greta Claudio DO Work Phone: Start: 12-17-2020 End: 12-17-2020 Cardiology Visit Report Procedure Note: See Note; NOTES: [facility] [place], [place] [address] OFFICE VISIT Date of Service: 12/17/20 MR#: [id number] Acct: [id number] Name: BHANU KEENE Rep #: [id number] : 1960 Provider: NADINE bhandari Age/Sex: 60/M Location: [facility] Status: Signed [facility] History of Present Illness Details: BHANU KEENE, is a 60 M who presents to the office today for a follow-up visit. He is a gentleman with a history of hypertension, hyperlipidemia who returns for routine follow-up visit. He acknowledges left-sided chest discomfort last week that he describes as a needle poke sensation. This was worse with exertion and improved with rest. He does note shortness of breath with activity. He denies lightheadedness, dizziness, near-syncope or syncope. He denies shortness of breath at rest, orthopnea, cough, or PND. Intake Vital Signs 12/17/20 10:23 Height 5 ft 7 in Weight: 171 lb BMI 26.7 BP 134/86 H Blood Pressure Location Lt brachial Position Sitting Respiration 16 Pulse 72 Pulse Source Auscultation Intake Visit Reasons: 1 Y FU (MOVE FROM [facility] 12/16) Applications Manager Required: No Accompanied by: None Is patient in pain?: No Allergies No Known Allergies Allergy (Verified 12/17/20 10:27) Medications aspirin 325 mg PO DAILY@0800 11/16/14 [History Confirmed 12/17/20] atorvastatin 10 mg tablet 10 mg PO QHS #90 tab 12/12/20 [Rx Confirmed 12/17/20] lisinopril 20 mg tablet 20 mg PO DAILY #90 tab 12/12/20 [Rx Confirmed 12/17/20] Ejection fraction %: 65 to 70 [facility] Medical History (Updated 12/17/20 @ 11:10 by Chong Barahona ESCROW CLOSER, [employer]OW CLOSER-C) Essential (primary) hypertension History of CVA (cerebrovascular accident) (2012) HLD (hyperlipidemia) Patent foramen ovale Family History Father CAD (coronary artery disease) Myocardial infarction Social History (Updated 12/17/20 @ 10:34 by Amina Gonzalez) Smoking Status: Never smoker Smokeless tobacco user: chewing tobacco alcohol intake: never substance use type: does not use caffeine: Yes (mountain dew ) Type: carbonated beverages Number of servings: 6 ROS Const Const: Negative for fatigue, weakness, headache(s), frequent falls, difficulty sleeping or excessive sweating Eyes Eyes: Negative for loss of peripheral vision, transient loss of vision, blurry vision, double vision or tunnel vision ENT ENT: Negative for headache(s), dizziness, Nosebleed/epistaxis or balance problems Cardio Chest Pain: Yes Frequency: other (last week) Character: other (Needle poke) Onset: other (At work, with exertion) Location: left chest Duration: brief Relieving: rest Palpitations: No Edema: None Muscle aches with walking: None Resp Respiratory: Positive for SOB with activity (With exertion); Negative for SOB at rest, SOB orthopnea SOB lying down, Cough or paroxysmal nocturnal dyspnea GI GI: Negative nausea, vomiting, heartburn or black,tarry stools : Negative for hematuria Musc Musc: Negative for muscle aches/ myalgia, muscle weakness, joint pain or balance problems Skin Skin: Negative non-healing lesions, rash or unusual bruising Neuro Neuro: Negative for dizziness, lightheadedness, near syncope, syncope, frequent falls, headache(s), weakness, blurry vision, double vision or lack of coordination Sam Hematologic/Lymphatic: Negative for easy bleeding or easy bruising Endo Endo: Negative for fatigue, excessive sweating or increased thirst/drinking Psych Psych: Negative for anxiety or depression Allergy Allergy/Immunology: Negative for hives and Negative for rash Cardiology Exam Const Appearance: cooperative, healthy appearing, comfortable and no acute distress Nutritional Appearance: well nourished and overweight Orientation: alert, awake and oriented x3 Head Head: normal to inspection Ears: hearing grossly normal bilaterally Nose: external nose normal Face and Sinus: face symmetric Mouth: oral mucosae normal Eyes General: appearance normal, both eyes and all related structures Eyelids: eyelids normal EOM: EOM intact bilaterally Neck Neck: normal visual inspection and no JVD Carotids: normal carotid upstroke Chest Chest inspection: normal inspection of the chest, symmetric chest movement and normal respiratory effort; Negative cough Auscultation: Bilateral: Clear to Auscultation Cardio Rate: regular rate Rhythm: regular rhythm Heart sounds: S1 normal and S2 normal; Negative rub, gallop or murmur GI GI: normal to inspection Neuro General: patient alert, patient awake, patient oriented x3 and CN's II-XI intact bilaterally Skin Skin: no rashes or lesions noted Extremities Pulses: Normal: Right Posterior Tibial Pulse, Left Posterior Tibial Pulse, Right Radial Pulse and Left Radial Pulse Lower Extremity Edema: None: Bilateral Psych Psychological: normal affect Supplemental Info Supplemental Information Echocardiogram from 01/11/2020: Interpretation Summary Normal LV size. Left ventricular systolic function is normal. The estimated ejection fraction is 65 %. Sigmoid septum. Labs: LDL Cholesterol 79 mg/dL (0-130) HDL Cholesterol 71 mg/dL (40-) Triglycerides 64 mg/dL (-199) VLDL Cholesterol 13 mg/dL (5-40) Diagnostics: Echocardiogram Pulmonary: No Data to Display Assessment and Plan Assessment and Plan (1) Essential (primary) hypertension: Status: Chronic Plan - Chong Barahona ESCROW CLOSER, ESCROW CLOSER-C: His blood pressure is better controlled today. He will continue current medical therapy and we will continue to monitor. (2) HLD (hyperlipidemia): Status: Chronic Orders: Orders: Lipid Profile Today Liver Profile Today Plan - Chong Barahona ESCROW CLOSER, ESCROW CLOSER-C: Lipid panel from 12/18/2019 showed Cholesterol: 163, HDL: 71, LDL: 79, and Triglycerides: 64. He will continue atorvastatin 10 mg p.o. nightly. He will repeat lipid and liver profile after today's office visit. Based on results, further recommendation be made. (3) Chest pain: Status: Acute Plan - Chong Barahona ESCROW CLOSER, ESCROW CLOSER-C: This is probably noncardiac. This appears to be more musculoskeletal based on description. However, given his family history and risk factors, it was recommended consider stress test to rule out coronary artery disease component. Through conversation, it was decided to continue to monitor for now. If his symptoms worsen, he was asked to contact our office for reevaluation and to reconsider stress test. Plan Details Additional Comments: Thank you for allowing us to participate in the patients plan of care, if you have any questions please do not hesitate to call. This note was generated using a voice recognition system and there may be incorrect words, spelling or punctuation that were not noted when reviewing the office note prior to saving. Follow Up: 12 Months (DEVELOPMENTAL MATHEMATICS PROFESSOR) Coding Level of Care Code Off vis,est,level 3 Diagnoses Essential (primary) hypertension I10 HLD (hyperlipidemia) E78.5 Chest pain R07.9 Coding Level of Care Code Off vis,est,level 3 Diagnoses Essential (primary) hypertension I10 HLD (hyperlipidemia) E78.5 Chest pain R07.9 12/17/20 1112 <Electronically signed by Chong Barahona NP ESCROW CLOSER-C> Date Chong Barahona NP ESCROW CLOSER-C Cosigner Signature: Date (if applicable) CC: Dr. Greta Claudio, DO Greta Claudio DO Work Phone: Start: 01-11-2020 End: 01-11-2020 Echo Complete Procedure Note: See Note; NOTES: [facility] [address] [place] [address] Echo Complete 01/11/20 1241 MR#: [id number] Acct: [id number] Name: BHANU KEENE Rep #: [id number] : 1960 59 From: Flaquito Garcia MD Attending Dr: Dr. Flaquito Garcia MD Status: REG C Ordering Dr: Flaquito Garcia MD Date: 01/11/20 Location: [facility] Sex: M C Admitted: Reason For Study: PFO/ASD Procedure This was a 2D Doppler, Color Flow transthoracic echocardiogram. Exam performed in department. Left Ventricle Normal LV size. Sigmoid septum. Left ventricular systolic function is normal. The estimated ejection fraction is 65 %. No regional wall motion abnormalities noted. Right Ventricle Normal RV size. Normal systolic function. Atria Normal left atrium. Normal right atrium. Mitral Valve Bileaflet diffuse mitral valve thickening. Tricuspid Valve Normal tricuspid valve. Aortic Valve Normal aortic valve. Trisinus/trileaflet aortic valve. Pulmonic Valve Normal pulmonic valve. Great Vessels Normal aortic root. The pulmonary artery is normal size. Normal inferior vena cava. Pericardium/Pleural No pericardial effusion. MMode/2D Measurements Calculations LVIDd: 4.7 cm IVSd: 1.1 cm Ao root diam: 3.3 cm LVIDs: 2.6 cm LVPWd: 0.99 cm RVDd: 3.7 cm FS: 44.5 % LAV(MOD-bp): 31.4 ml LVAd ap4: 32.5 cm2 SV(MOD-sp4): 60.4 ml LAV(MOD-bp) Indexed: 16.6 ml/m2 EDV(MOD-sp4): 101.6 ml LAV(MOD-sp2): 37.5 ml EDV(sp4-el): 104.8 ml LAV(MOD-sp4): 26.7 ml LVAs ap4: 18.4 cm2 ESV(MOD-sp4): 41.1 ml ESV(sp4-el): 40.7 ml EF(MOD-sp4): 59.5 % EF(sp4-el): 61.2 % SV(sp4-el): 64.1 ml LA A4 area: 12.3 cm2 LA dimension(2D): 3.9 cm RA A4 area: 12.5 cm2 Doppler Measurements Calculations MV E max damien: 52.8 cm/sec Lat Peak E' Damien: 5.5 cm/sec Med Peak E' Damien: 5.6 cm/sec MV A max damien: 68.3 cm/sec E/E' lat: 9.6 E/E' med: 9.5 MV E/A: 0.77 Ao V2 max: 125.5 cm/sec LV V1 max: 103.0 cm/sec PA V2 max: 86.1 cm/sec Ao max P.3 mmHg LV V1 max P.2 mmHg TR max damien: 213.3 cm/sec TR max P.2 mmHg Interpretation Summary Normal LV size. Left ventricular systolic function is normal. The estimated ejection fraction is 65 %. Sigmoid septum. _ Ordering Physician: Flaquito Garcia Referring Physician: Greta Claudio M.D. Performed By: Concha Stanley RDCS 01/11/20 1424 Date Flaquito Garcia MD CC: Dr. Flaquito Garcia MD; Dr. Greta Claudio DO Date Dictated: 01/11/20 1241 Date Transcribed: 01/11/20 142 Router Machine Operator: Signed Greta Claudio DO Work Phone: Start: 12-18-2019 End: 12-18-2019 Cardiology Visit Report Procedure Note: See Note; NOTES: [facility] [address] [place], [place] [address]. [address] [place], [place] [address] OFFICE VISIT Date of Service: 12/18/19 MR#: [id number] Acct: [id number] Name: DAVIDConchisBHANU D Rep #: [id number] : 1960 Provider: Dr. Flaquito Garcia MD Age/Sex: 59/M Location: [facility] Status: Signed HPI [facility] History of Present Illness Details: BHANU KEENE, is a 59 M who presents to the office today for a follow-up visit. He is a gentleman with a history of hypertension, hyperlipidemia who returns for routine follow-up visit. He denies any chest pain or shortness breath or paroxysmal nocturnal dyspnea or pedal edema he has had no neck arm or jaw discomfort suggest angina. He is not had any dizziness or diaphoresis no near syncope or syncope. He has been compliant with all his medications. His physical exam today demonstrates clear lung lawson regular rate and rhythm and no pedal edema. Intake Vital Signs 12/18/19 Height 5 ft 7 in 12/18/19 Weight: 171 lb 12/18/19 BMI 26.7 12/18/19 BP 143/96 H 12/18/19 Respiration 16 12/18/19 Pulse 80 12/18/19 Pulse Oximetry (%) 100 Intake Visit Reasons: 1 Y FU Allergies No Known Allergies Allergy (Verified 12/18/19 07:32) Medications Aspirin 325 mg PO DAILY@0800 11/16/14 [History Confirmed 12/18/19] atorvastatin 10 mg tablet 10 mg PO QHS #90 tab 12/18/19 [Rx Confirmed 12/18/19] lisinopril 20 mg tablet 20 mg PO DAILY #90 tab 12/18/19 [Rx Confirmed 12/18/19] Ejection fraction %: 65 to 70 [facility] Medical History Essential (primary) hypertension (Chronic) HLD (hyperlipidemia) (Chronic) History of CVA (cerebrovascular accident) (Chronic 2012) Patent foramen ovale (Chronic) Family History Father CAD (coronary artery disease) Myocardial infarction Social History (Updated 12/18/19 @ 09:[address] Flaquito Garcia MD) Smoking Status: Never smoker caffeine: Yes (mountain dew ) Type: carbonated beverages Number of servings: 3 ROS Const Const: Negative for fatigue, weakness, headache(s), frequent falls, difficulty sleeping or excessive sweating Eyes Eyes: Negative for loss of peripheral vision, transient loss of vision, blurry vision, double vision or tunnel vision ENT ENT: Negative for headache(s), dizziness, Nosebleed/epistaxis or balance problems Cardio Chest Pain: No Palpitations: No Edema: None Muscle aches with walking: None Resp Respiratory: Negative for SOB with activity, SOB at rest, SOB orthopnea SOB lying down, Cough or paroxysmal nocturnal dyspnea GI GI: Negative nausea, vomiting, heartburn or black,tarry stools : Negative for hematuria Musc Musc: Negative for muscle aches/ myalgia, muscle weakness, joint pain or balance problems Skin Skin: Negative non-healing lesions, rash or unusual bruising Neuro Neuro: Negative for dizziness, lightheadedness, near syncope, syncope, orthostatic symptoms, frequent falls, headache(s), weakness, blurry vision, double vision or lack of coordination Sam Hematologic/Lymphatic: Negative for easy bleeding or easy bruising Endo Endo: Negative for fatigue, excessive sweating or increased thirst/drinking Psych Psych: Negative for anxiety or depression Allergy Allergy/Immunology: Negative for hives, Negative for rash Cardiology Exam Const Appearance: cooperative, healthy appearing, no acute distress, well developed and well groomed Nutritional Appearance: average body habitus and well nourished Orientation: alert, awake and oriented x3 Head Head: normal to inspection, normocephalic and atraumatic Ears: hearing grossly normal bilaterally and external ears normal Nose: external nose normal, nares normal, nasal mucous membranes and turbinates normal, septum normal, no nasal discharge Face and Sinus: face symmetric Mouth: oral mucosae normal, tongue normal, oropharynx normal and moist mucous membranes Teeth and gingiva: dentition normal Throat: posterior oropharynx normal, tonsils normal and uvula midline Eyes General: appearance normal, both eyes and all related structures Eyelids: eyelids normal Conjunctivae: conjunctivae normal Pupils: PERRL, normal by confrontation and accommodation normal EOM: EOM intact bilaterally Neck Neck: normal visual inspection, trachea midline and no JVD JVD: +5 Carotids: normal carotid upstroke and bounding pulses Chest Chest inspection: normal inspection of the chest, symmetric chest movement and normal respiratory effort Auscultation: Bilateral: Clear to Auscultation Cardio Palpation: normal PMI Rate: regular rate Rhythm: regular rhythm Heart sounds: S1 normal, S2 normal and normal, physiologic split S2; negative rub, gallop or murmur GI GI: normal to inspection, soft, no hepatosplenomegaly and bowel sounds present Neuro General: alert, awake, oriented x3, gait normal, moves all extremities and no focal sensory deficit Skin Skin: no rashes or lesions noted Extremities Pulses: Normal: Right Femoral Pulse, Left Femoral Pulse, Right Dorsalis Pedis Pulse, Left Dorsalis Pedis Pulse, Right Posterior Tibial Pulse, Left Posterior Tibial Pulse, Right Radial Pulse, Left Radial Pulse Lower Extremity Edema: None: Bilateral Musculoskel Musculoskeletal: No joint tenderness Psych Psychological: normal affect Assessment Plan 1. Essential (primary) hypertension I10 Plan His blood pressure does not appear to be under very good control. I would recommend that we increase his lisinopril to 20 mg a day. His last echocardiogram from 7 years ago demonstrated moderate LVH with a hypermobile atrial septum. No changes were made with regard to the above. I would recommend another repeat echocardiogram. Orders Orders: Lipid Profile Today Echo Complete Today 2. HLD (hyperlipidemia) E78.5 Plan Lipid profile is pending at today's visit. Risk factor modification in hopes of reducing his chance of a repeat CVA. He would also continue on his aspirin. 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) Coding Level of Care Code Off vis,est,level 3 Diagnoses Essential (primary) hypertension I10 HLD (hyperlipidemia) E78.5 Coding Level of Care Code Off vis,est,level 3 Diagnoses Essential (primary) hypertension I10 HLD (hyperlipidemia) E78.5 Supplemental Info Supplemental Information Labs LDL Cholesterol 69 mg/dL (0-130) 12/12/18 HDL Cholesterol 74 mg/dL (40-) 12/12/18 Triglycerides 63 mg/dL (-199) 12/12/18 VLDL Cholesterol 13 mg/dL (5-40) 12/12/18 12/18/19 0950 <Electronically signed by Flaquito Garcia MD> Date Flaquito Garcia MD Cosigner Signature: Date (if applicable) CC: Greta Claudio DO Greta Claudio DO Work Phone: Start: 12-12-2018 End: 12-12-2018 Cardiology Visit Report Procedure Note: See Note; NOTES: [facility] [address] [place] [address] OFFICE VISIT Date of Service: 12/12/18 MR#: [id number] Acct: [id number] Name: BHANU KEENE Rep #: [id number] : 1960 Provider: Flaquito Garcia MD Age/Sex: 58/M Location: [facility] [place] Status: Signed HPI HPI History of Present Illness Details: BHANU KEENE, is a 58 M who presents to the office today for a follow-up visit. He is a gentleman with a history of hypertension, hyperlipidemia who returns for routine follow-up visit. He denies any chest pain or shortness breath or paroxysmal nocturnal dyspnea or pedal edema he has had no neck arm or jaw discomfort suggest angina. He is not had any dizziness or diaphoresis no near syncope or syncope. He has been compliant with all his medications. His physical exam today demonstrates clear lung lawson regular rate and rhythm and no pedal edema. Intake Vital Signs12/12/18 Height 5 ft 7 in 12/12/18 Weight: 174 lb Intake Visit Reasons: 1 Y FU Allergies No Known Allergies Allergy (Verified 12/12/18 07:47) Medications Aspirin 325 mg PO DAILY@0800 11/16/14 [History Confirmed 12/12/18] lisinopril 10 mg tablet 10 mg PO DAILY #90 tab 11/03/18 [Rx Confirmed 12/12/18] atorvastatin 10 mg tablet 10 mg PO QHS #90 tab 12/12/18 [Rx Confirmed 12/12/18] [facility] Medical History Essential (primary) hypertension (Chronic) HLD (hyperlipidemia) (Chronic) History of CVA (cerebrovascular accident) (Chronic 2012) Patent foramen ovale (Chronic) Family History Father CAD (coronary artery disease) Myocardial infarction Social History (Updated 12/12/18 @ 09:37 by Flaquito Garcia MD) Smoking Status: Never smoker caffeine: Yes (mountain dew ) Type: carbonated beverages Number of servings: 3 ROS Const Const: Negative for fatigue, weakness, headache(s), frequent falls, difficulty sleeping or excessive sweating Eyes Eyes: Negative for loss of peripheral vision, transient loss of vision, blurry vision, double vision or tunnel vision ENT ENT: Negative for headache(s), dizziness, Nosebleed/epistaxis or balance problems Cardio Chest Pain: No Palpitations: No Edema: None Muscle aches with walking: None Resp Respiratory: Negative for SOB with activity, SOB at rest, SOB orthopnea\SOB lying down, Cough or paroxysmal nocturnal dyspnea GI GI: Negative nausea, vomiting, heartburn or black,tarry stools : Negative for hematuria Musc Musc: Negative for muscle aches/ myalgia, muscle weakness, joint pain or balance problems Skin Skin: Negative non-healing lesions, rash or unusual bruising Neuro Neuro: Negative for dizziness, lightheadedness, near syncope, syncope, orthostatic symptoms, frequent falls, headache(s), weakness, blurry vision, double vision or lack of coordination Sam Hematologic/Lymphatic: Negative for easy bleeding or easy bruising Endo Endo: Negative for fatigue, excessive sweating or increased thirst/drinking Psych Psych: Negative for anxiety or depression Allergy Allergy/Immunology: Negative for hives, Negative for rash Cardiology Exam Const Appearance: cooperative, healthy appearing, no acute distress, well developed and well groomed Nutritional Appearance: average body habitus and well nourished Orientation: alert, awake and oriented x3 Head Head: normal to inspection, normocephalic and atraumatic Ears: hearing grossly normal bilaterally and external ears normal Nose: external nose normal, nares normal, nasal mucous membranes and turbinates normal, septum normal, no nasal discharge Face and Sinus: face symmetric Mouth: oral mucosae normal, tongue normal, oropharynx normal and moist mucous membranes Teeth and gingiva: dentition normal Throat: posterior oropharynx normal, tonsils normal and uvula midline Eyes General: appearance normal, both eyes and all related structures Eyelids: eyelids normal Conjunctivae: conjunctivae normal Pupils: PERRL, normal by confrontation and accommodation normal EOM: EOM intact bilaterally Neck Neck: normal visual inspection, trachea midline and no JVD JVD: +5 Carotids: normal carotid upstroke and bounding pulses Chest Chest inspection: normal inspection of the chest, symmetric chest movement and normal respiratory effort Auscultation: Bilateral: Clear to Auscultation Cardio Palpation: normal PMI Rate: regular rate Rhythm: regular rhythm Heart sounds: S1 normal, S2 normal and normal, physiologic split S2; negative rub, gallop or murmur GI GI: normal to inspection, soft, no hepatosplenomegaly and bowel sounds present Neuro General: alert, awake, oriented x3, gait normal, moves all extremities and no focal sensory deficit Skin Skin: no rashes or lesions noted Extremities Pulses: Normal: Right Femoral Pulse, Left Femoral Pulse, Right Dorsalis Pedis Pulse, Left Dorsalis Pedis Pulse, Right Posterior Tibial Pulse, Left Posterior Tibial Pulse, Right Radial Pulse, Left Radial Pulse Lower Extremity Edema: None: Bilateral Musculoskel Musculoskeletal: No joint tenderness Psych Psychological: normal affect Assessment AND Plan 1. Essential (primary) hypertension I10 Plan His blood pressure appears to be under fair control at this time my recommendation is for him to continue same medications with no chnages. Orders Orders: 2. HLD (hyperlipidemia) E78.5 Plan He does have a history of hyperlipidemia. He is due to have a repeat lipid profile performed. Depending on the findings further recommendations will be made. 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) Coding Level of Care Code Off vis,est,level 3 Diagnoses Essential (primary) hypertension I10 HLD (hyperlipidemia) E78.5 Coding Level of Care Code Off vis,est,level 3 Diagnoses Essential (primary) hypertension I10 HLD (hyperlipidemia) E78.5 Supplemental Info Supplemental Information Labs LDL Cholesterol 68 mg/dL (0-130) 12/20/17 HDL Cholesterol 67 mg/dL (40-) 12/20/17 Triglycerides 51 mg/dL (-199) 12/20/17 VLDL Cholesterol 10 mg/dL (5-40) 12/20/17 12/12/18 0937 <Electronically signed by Flaquito Garcia MD> Date Flaquito Garcia MD Cosigner Signature: Date (if applicable) CC: Greta Claudio DO Greta Shanon DO Work Phone: Start: 12-20-2017 End: 12-20-2017 Cardiology Visit Report Procedure Note: See Note; NOTES: [facility] [address] [place] [address]. [address] [place] [address] OFFICE VISIT Date of Service: 12/20/17 MR#: [id number] Acct: [id number] Name: BHANU KEENE Rep #: [id number] : 1960 Provider: Flaquito Garcia MD Age/Sex: 57/M Location: [facility] [place] Status: Signed HPI HPI Chief Complaint: Follow-up visit. Details: BHANU KEENE, is a 57 M who presents to the office today for a follow-up visit. He is a gentleman with a history of hypertension hyperlipidemia who returns for routine follow-up visit. He denies any chest pain or shortness breath or paroxysmal nocturnal dyspnea or pedal edema he has had no neck arm or jaw discomfort suggest angina. He is not had any dizziness or diaphoresis no near syncope or syncope. He has been compliant with all his medications. His physical exam today demonstrates clear lung lawson regular rate and rhythm and no pedal edema. All Intake Vital Signs12/20/17 Height 5 ft 7 in 12/20/17 Weight: 179 lb 12/20/17 Body Mass Index (BMI) 28.0 12/20/17 Blood Pressure 138/84 H 12/20/17 Blood Pressure Location Lt brachial Intake Visit Reasons: 1 Y FU (we r/s from 11-29) Applications Manager Required: No Accompanied by: none Is patient in pain?: No Allergies No Known Allergies Allergy (Verified 12/20/17 09:01) Medications Aspirin 325 mg PO DAILY@0800 11/16/14 [History Confirmed 12/20/17] atorvastatin 10 mg tablet 10 mg PO QHS #90 tab 04/28/17 [Rx Confirmed 12/20/17] lisinopril 10 mg tablet 10 mg PO DAILY #90 tab 10/28/17 [Rx Confirmed 12/20/17] PF[facility] Medical History Disorder of tricuspid valve (Chronic) Essential (primary) hypertension (Chronic) HLD (hyperlipidemia) (Chronic) Family History Father CAD (coronary artery disease) Myocardial infarction Social History Smoking Status: Never smoker ROS Const Const: Negative for fatigue, weakness, night sweats, excessive sweating, frequent falls, headache(s) or daytime sleepiness Eyes Eyes: Negative for loss of peripheral vision, transient loss of vision, blind spots, double vision or blurry vision ENT ENT: Negative for headache(s), dizziness, balance problems, Nosebleed/epistaxis, tongue swelling or lip swelling Cardio Chest Pain: No Palpitations: No Edema: None Muscle aches with walking: None Resp Respiratory: Negative for SOB at rest, SOB orthopnea\SOB lying down, Cough, paroxysmal nocturnal dyspnea or SOB with activity GI GI: Negative nausea, vomiting, heartburn, black,tarry stools or bright, red blood in stools : Negative for hematuria Musc Musc: Negative for balance problems, muscle aches/ myalgia, muscle weakness or joint pain Skin Skin: Negative non-healing lesions, unusual bruising or rash Neuro Neuro: Negative for weakness, frequent falls, headache(s), double vision, dizziness, lightheadedness, orthostatic symptoms, blurry vision or lack of coordination Sam Hematologic/Lymphatic: Negative for easy bruising or easy bleeding Endo Endo: Negative for fatigue, excessive sweating, cold intolerance, heat intolerance, increased thirst/drinking or hair loss Psych Psych: Negative for anxiety or depression Allergy Allergy/Immunology: Negative for throat swelling, Negative for tongue swelling, Negative for hives, Negative for rash, Negative for lip swelling Cardiology Exam Const Appearance: cooperative, healthy appearing, well developed, well groomed and no acute distress Nutritional Appearance: well nourished and average body habitus Orientation: alert, awake and oriented x3 Head Head: normal to inspection, normocephalic and atraumatic Ears: hearing grossly normal bilaterally and external ears normal Nose: external nose normal, nasal mucous membranes and turbinates normal, nares normal, septum normal, no nasal discharge Face and Sinus: face symmetric Mouth: oral mucosae normal, tongue normal, oropharynx normal and moist mucous membranes Teeth and gingiva: dentition normal Throat: posterior oropharynx normal, tonsils normal and uvula midline Eyes General: appearance normal, both eyes and all related structures Eyelids: eyelids normal Conjunctivae: conjunctivae normal Pupils: PERRL, normal by confrontation and accommodation normal EOM: EOM intact bilaterally Neck Neck: normal visual inspection, trachea midline and no JVD JVD: +5 Carotids: normal carotid upstroke and bounding pulses Chest Chest inspection: normal inspection of the chest, symmetric chest movement and normal respiratory effort Auscultation: Bilateral: Clear to Auscultation Cardio Palpation: normal PMI Rate: regular rate Rhythm: regular rhythm Heart sounds: S1 normal, S2 normal and normal, physiologic split S2; negative rub, gallop or murmur GI GI: normal to inspection, soft, no hepatosplenomegaly and bowel sounds present Neuro General: alert, awake, oriented x3, no focal sensory deficit, gait normal and moves all extremities Skin Skin: no rashes or lesions noted Extremities Pulses: Normal: Right Femoral Pulse, Left Femoral Pulse, Right Dorsalis Pedis Pulse, Left Dorsalis Pedis Pulse, Right Posterior Tibial Pulse, Left Posterior Tibial Pulse, Right Radial Pulse, Left Radial Pulse Lower Extremity Edema: None: Bilateral Musculoskel Musculoskeletal: No joint tenderness Psych Psychological: normal affect Assessment AND Plan 1. Essential (primary) hypertension I10 Plan He does have a history of hypertension which appears to well controlled. He will remain on the lisinopril at the same dose. My recommendation would be to obtain a chemistry profile. Orders Orders: 2. HLD (hyperlipidemia) E78.5 Plan He does have a history of hyperlipidemia. He remains on medium intensity statin. He has not had any recent lipid profile and one will be obtained today. At this juncture however I would not suggest that we make any other changes. 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) Coding Level of Care Code Off vis,est,level 3 Diagnoses Essential (primary) hypertension I10 HLD (hyperlipidemia) E78.5 Coding Level of Care Code Off vis,est,level 3 Diagnoses Essential (primary) hypertension I10 HLD (hyperlipidemia) E78.5 12/20/17 0929 <Electronically signed by Flaquito Garcia MD> Date Flaquito Garcia MD Cosigner Signature: Date (if applicable) CC: Greta Claudio DO Greta Claudio DO Work Phone: Start: 11-29-2016 End: 12-03-2016 *Hepatic Function Panel Phuong Loyola PA-C Work Phone: Start: 11-29-2016 End: 11-29-2016 DEVELOPMENTAL MATHEMATICS PROFESSOR Phuong Loyola PA-C Work Phone: Start: 11-29-2016 End: 11-29-2016 Follow Up Appt 1 year Phuong Loyola PA-C Work Phone: Start: 11-29-2016 End: 12-03-2016 Lipid 1996 panel - Serum or Plasma Phuong Loyola PA-C Work Phone: Start: 05-17-2016 End: 11-29-2016 *Hepatic Function Panel Alvin Elliott Start: 05-17-2016 End: 11-29-2016 Lipid 1996 panel - Serum or Plasma Flaquito Garcia MD Start: 03-19-2016 End: 03-19-2016 Emergency Department Summary Procedure Note: See Note; NOTES: [facility] [facility] Medical Records Department [address] [place] [address] Emergency Department Summary MR#: [id number] Acct: [id number] Name: BHANU KEENE Rep #: [id number] : 1960 55 From: Jessica Florentino MD PCP: Greta Claudio DO Status: [facility] ER DATE OF SERVICE: 03/18/2016 CHIEF COMPLAINT: Eye injury. HISTORY OF PRESENT ILLNESS: This is a 55-year-old male that felt like something got in his eye around 2:00 p.m., the wind was blowing and he felt like something went in it and it is just not going away. It is pretty uncomfortable, but not really painful. He has had no visual change. PHYSICAL EXAMINATION: Visual acuity was 20/70 right eye, 20/40 left eye, and 20/40 each eye. This is uncorrected. He does wear corrective lenses. The left eyelid was everted and there was no foreign body underneath it. There was slight lid edema, but no scleral or subconjunctival injection. Pupils are equal and reactive to light and accommodation. His extraocular motion is intact with no pain, palsy, or nystagmus. Tetracaine and then fluorescein are instilled in the left eye and there was very subtle mild dye uptake around 9 o'clock. There is no ulcer, no laceration. Exam is otherwise completely benign. CLINICAL COURSE AND DECISION MAKING: The patient was reassured that he seems to have a very mild and superficial abrasion. He was prescribed antibiotic eyedrops and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 Provider Instructions for Treatment [facility]; [facility] Work Phone: Start: 09-18-2012 Blood count manual cell count each CBC with manual diff (58272) [facility]; [facility] Work Phone: Start: 09-12-2012 Blood count complete auto&auto difrntl wbc CBC, Platelets & Auto Diff ([id number]) [facility]; [facility] Work Phone: Start: 09-12-2012 Comprehensive metabolic panel Metabolic Panel, Comprehensive ([id number]) [facility]; [facility] Work Phone: Start: 09-12-2012 Lipid panel Lipid Panel ([id number]) [facility] Work Phone: Start: 09-12-2012 Provider Instructions for Treatment Follow up in 2 weeks [facility]; [facility] Work Phone: Patient Education HYPERLIPIDEMIA , LIPID%20PROFILE [facility] Work Phone: [facility] Work Phone: [facility] Work Phone: [facility] Work Phone: [facility] Work Phone: [facility] Work Phone: [facility] Work Phone: Payers Date Payer Category Payer Unknown [id number] 2013 Private Health Insurance [id number] 2012 Unknown [id number] 1960 Unknown [id number] Unknown [employer] Social History Date Type Detail Facility Most Recent Primary Occupation Most Recent Primary Occupation [facility]; [facility] Work Phone: Instructions Note Date & Type Note Facility [facility]; [facility] Work Phone: Summary Purpose Family History Unknown Family Member Name Dates Details Mother Comments:[place], Status:Active Advance Directives No Advanced Directives Records Found Additional Source Comments (unrecognized sect ion and content) No Status Records Found INFORMATION SOURCE (unrecogn ized section and content) FOR RECORDS PERTAINING TO PATIENTS WHO ARE OR HAVE BEEN ENROLLED IN A CHEMICAL DEPENDENCY/SUBSTANCEABUSE PROGRAM, SOME INFORMATION MAY BE OMITTED. This clinical summary was aggregated from multiple sources. Caution should be exercised in using it in the provision of clinical care. This summary normalizes information from multiple sources, and as a consequence, information in this document may materially change the coding, format and clinical context of patient data. In addition, data may be omitted in some cases. CLINICAL DECISIONS SHOULD BE BASED ON THE PRIMARY CLINICAL RECORDS. [facility] [place] [facility]. provides no warranty or guarantee of the accuracy or completeness of information in this document.
[2023-04-16 09:27] LABS: Hemoglobin A1c 5.4 % (3.8-5.6)
== END | disposition home or self-care (01) ==
LOC: LAB 07:37
PROVIDERS: PCP Internal Medicine; Referring Provider Internal Medicine; Visit Provider Internal Medicine
DX: E78.5 Hyperlipidemia, unspecified (principal)
CPT/HCPCS: 36415; 83036

== ENCOUNTER → 2024-04-12 | Outpatient (CLI) | payer BC, SELFPAY ==
[2024-04-12 18:55] LABS: ALB/GLOB Ratio 1.7 RATIO (0.9-2.4); AST(SGOT) 23 U/L (<=37); Alanine Aminotransfer ALT/SGPT 26 U/L (<=46); Albumin, Serum 4.5 g/dL (3.4-4.8); Alkaline Phosphatase 76 U/L (40-129); Anion Gap 12 (5-15); BUN 20 mg/dL (4-19); BUN/Creat Ratio 25.9 RATIO (10-20); Calcium,Total 9.8 mg/dL (7.6-11.0); Carbon Dioxide 23.8 mmol/L (21.0-32.0); Chloride 102 mmol/L (98-108); Cholesterol 180 mg/dL (<=200); Creatinine, Serum 0.78 mg/dL (0.70-1.20); EST Glomerular Filtration Rate 101 (>60); Globulin 2.7 g/dL (2.2-4.2); Glucose 96 mg/dL (70-99); High Density Lipoprotein 71 mg/dL; Low Density Lipoprotein Calc. 91 mg/dL; Potassium 3.6 mmol/L (3.3-5.1); Protein, Total 7.2 g/dL (5.9-8.4); Sodium Level 138 mmol/L (133-145); Total Bilirubin 0.46 mg/dL (0.00-1.30); Triglycerides 93 mg/dL; Very Low Density Lipoprotein 19 mg/dL (5-40); cholesterol:hdl ratio screen 2.55
== END | disposition home or self-care (01) ==
LOC: LAB 16:38
PROVIDERS: PCP Internal Medicine; Referring Provider Physician Assistant Medical; Visit Provider Physician Assistant Medical
DX: I10 Essential (primary) hypertension (principal); E78.5 Hyperlipidemia, unspecified
CPT/HCPCS: 36415; 80053; 80061